=== PATIENT | female | born 1970 | race Caucasian/White ===

== ENCOUNTER 2018-08-04 12:13 | Inpatient (IN) | payer OTHER ==
[~2018-08-04] VITALS: Ht 175.3 cm; Wt 69.1 kg
[2018-08-04] MEDS ORDERED: SODIUM CHLORIDE 0.9% 1,000 ML IV ONE (12:43)
--- NOTE | 2018-08-04 12:43 | NUR ---
PT IN GOWN. NO COMPLAINTS OF PAIN OR NAUSEA AT THIS TIME. ABD DISTENDED BUT SOFT. ERP IN TO SEE PT. CALL LIGHT WITHIN REACH.
[2018-08-04] MEDS ORDERED: ONDANSETRON 2MG/ML, 2ML IVPush ONE (13:00)
[2018-08-04] MEDS ORDERED: SODIUM CHLORIDE 0.9% 1,000ML IVBOLUS ONE (13:00)
[2018-08-04] MEDS ORDERED: SODIUM CHLORIDE FLUSH 10ML SYR IVF ONE (13:00)
[2018-08-04] MEDS ORDERED: FENTANYL PF 250 MCG/5ML ONE ×2 (13:04→13:59)
[2018-08-04] MEDS ORDERED: PROPOFOL 10 MG/ML, 20ML ONE (13:06)
[2018-08-04] MEDS ORDERED: ROCURONIUM 10MG/ML,5ML ONE (13:06)
[2018-08-04] MEDS ORDERED: SUCCINYLCHOLINE 20 MG/ML, 10ML ONE (13:06)
--- NOTE | 2018-08-04 13:10 | NUR ---
REPORT TO OR. PT UNDRESSED, PREP FOR SURGERY. IV TO BE PLACED PRIOR TO LEAVING ED.
[2018-08-04] MEDS ORDERED: SODIUM CHLORIDE FLUSH 10ML SYR IVF PRN (13:30)
[2018-08-04 13:32] LABS: BASOPHILS # (AUTO) 0.04 x10^3/uL (0-0.1); BASOPHILS % (AUTO) 0 % (0-1); EOSINOPHILS % (AUTO) 0 % (1-7); LYMPHOCYTES # (AUTO) 0.49 x10^3/uL (1-3.4); LYMPHOCYTES % (AUTO) 5 % (22-44); MD NO; MEAN CORPUSCULAR HEMOGLOBIN 32.2 pg (27.0-34.8); MEAN CORPUSCULAR HGB CONC 34.1 g/dL (32.4-35.8); MEAN CORPUSCULAR VOLUME 94.5 fL (80-100); MEAN PLATELET VOLUME 7.8 fL (7.4-10.4); MONOCYTES # (AUTO) 0.45 x10^3/uL (0.2-0.8); MONOCYTES % (AUTO) 4 % (2-9); NEUTROPHILS # (AUTO) 9.93 x10^3/uL (1.8-6.8); NEUTROPHILS % (AUTO) 91 % (42-75); PLATELET COUNT 249 x10^3/uL (130-400); RED BLOOD COUNT 5.21 x10^6/uL (3.82-5.3); RED CELL DISTRIBUTION WIDTH 13.5 % (9.6-15.2)
[2018-08-04 13:44] LABS: ALANINE AMINOTRANSFERASE 23 U/L (12-78); ALBUMIN 4.6 g/dL (3.4-5.0); ANION GAP 9 mmol/L (5-15); CALCIUM 9.9 mg/dL (8.5-10.1); CHLORIDE 103 mmol/L (98-107)
[2018-08-04 13:46] LABS: ALKALINE PHOSPHATASE 70 U/L (45-117); CREATININE 1.04 mg/dL (0.55-1.02); TOTAL PROTEIN 8.7 g/dL (6.4-8.2)
[2018-08-04] MEDS ORDERED: MIDAZOLAM 1 MG/ML, 2ML ONE (13:59)
[2018-08-04] MEDS ORDERED: DEXAMETHASONE 4 MG/ML, 1ML ONE (14:30)
[2018-08-04] MEDS ORDERED: KETOROLAC 30 MG/1 ML ONE (14:34)
[2018-08-04] MEDS ORDERED: ONDANSETRON 2MG/ML, 2ML ONE (15:00)
[2018-08-04] MEDS ORDERED: ONDANSETRON 2MG/ML, 2ML IV PRN (15:00)
[2018-08-04] MEDS ORDERED: MEPERIDINE/PF 25MG/0.5ML IVPush PRN (15:00)
[2018-08-04] MEDS ORDERED: LABETALOL 5MG/ML, 20ML IV PRN (15:00)
[2018-08-04] MEDS ORDERED: PROMETHAZINE 25 MG/ML, 1ML IV PRN (15:00)
[2018-08-04] MEDS ORDERED: FENTANYL PF 100 MCG/2ML IV PRN (15:00)
[2018-08-04] MEDS ORDERED: HYDROmorphone 2 MG/ML, 1ML IVPush PRN (15:00)
[2018-08-04] MEDS ORDERED: OXYcodone 5 MG/5 ML ORAL.SOL UDC PO PRN (15:00)
[2018-08-04] MEDS ORDERED: hydrALAzine 20 MG/ML, 1ML IV PRN (15:00)
[2018-08-04] MEDS ORDERED: ACETAMINOPHEN 325 MG TABLET PO PRN (15:00)
[2018-08-04] MEDS ORDERED: SUGAMMADEX 200 MG/2 ML IVPush ONE (15:03)
[2018-08-04] MEDS ORDERED: OXYcodone 5 MG/5 ML ORAL.SOL UDC ONE (15:25)
[2018-08-04] MEDS ORDERED: ACETAMINOPHEN 650 MG/20.3 ML UDC ONE ×2 (15:25→15:26)
[2018-08-04] MEDS ORDERED: HYDROmorphone 1 MG/ML, 1ML VIAL ONE (15:26)
[2018-08-04] MEDS ORDERED: ACETAMINOPHEN 100 ML IVPB PRN ×2 (15:30→21:30)
[2018-08-04] MEDS ORDERED: CALCIUM CARBONATE 500 MG TAB.CHEW PO PRN (15:30)
[2018-08-04] MEDS: IBUPROFEN 800 MG TABLET PO SCH ×2 (16:00→20:07)
[2018-08-04] MEDS ORDERED: SCOPOLAMINE PATCH, 1.5MG PATCH.TD72 TD PRN (16:03)
[2018-08-04] MEDS ORDERED: DIPHENHYDRAMINE 50 MG/ML, 1ML IVPush PRN (16:30)
[2018-08-04] MEDS ORDERED: FENTANYL PF 100 MCG/2ML IVPush PRN (16:30)
[2018-08-04] MEDS ORDERED: OXYcodone IR 5MG TABLET PO PRN (16:30)
[2018-08-04] MEDS ORDERED: LACTATED RINGERS 1,000 ML IV SCH (16:30)
[2018-08-04] MEDS ORDERED: METOCLOPRAMIDE 5 MG/ML, 2ML ONE (16:36)
[2018-08-04] MEDS: CEFTRIAXONE PMX 2GM/50ML 50 ML IVPB SCH (17:43)
[2018-08-04] MEDS: SODIUM CHLORIDE FLUSH 10ML SYR IVF SCH (20:08)
[2018-08-04 20:10] VITALS: BP 121/65
[2018-08-04] MEDS: LORazepam 2 MG/ML, 1ML IVPush PRN (23:33)
[2018-08-04 23:59] LABS: MICROSCOPIC NOT IND
[2018-08-05 00:01] LABS: CULTURE INDICATED? NO
[2018-08-05 01:20] VITALS: BP 100/63
[2018-08-05 03:06] LABS: BASOPHILS % (AUTO) 0 % (0-1); EOSINOPHILS % (AUTO) 0 % (1-7); LYMPHOCYTES % (AUTO) 7 % (22-44); MD NO; MEAN CORPUSCULAR HEMOGLOBIN 32.3 pg (27.0-34.8); MEAN CORPUSCULAR HGB CONC 34.3 g/dL (32.4-35.8); MEAN CORPUSCULAR VOLUME 94.3 fL (80-100); MEAN PLATELET VOLUME 7.7 fL (7.4-10.4); MONOCYTES # (AUTO) 0.43 x10^3/uL (0.2-0.8); MONOCYTES % (AUTO) 6 % (2-9); NEUTROPHILS # (AUTO) 6.32 x10^3/uL (1.8-6.8); NEUTROPHILS % (AUTO) 87 % (42-75); PLATELET COUNT 190 x10^3/uL (130-400); RED BLOOD COUNT 4.18 x10^6/uL (3.82-5.3); RED CELL DISTRIBUTION WIDTH 13.5 % (9.6-15.2)
[2018-08-05 03:17] LABS: ANION GAP 5 mmol/L (5-15); CALCIUM 8.5 mg/dL (8.5-10.1); CHLORIDE 104 mmol/L (98-107); CREATININE 0.99 mg/dL (0.55-1.02)
[2018-08-05] MEDS: OXYcodone IR 5MG TABLET PO PRN ×3 (04:12→21:01)
[2018-08-05 07:21] VITALS: BP 110/67
[2018-08-05] MEDS: PSYLLIUM PACKET PO SCH (09:39)
[2018-08-05] MEDS: IBUPROFEN 800 MG TABLET PO SCH ×3 (09:39→20:05)
[2018-08-05] MEDS: SODIUM CHLORIDE FLUSH 10ML SYR IVF SCH ×2 (09:39→20:06)
[2018-08-05] MEDS: ENOXAPARIN 30 MG/0.3 ML SQ SCH ×2 (09:39→21:01)
[2018-08-05 13:11] VITALS: BP 121/82
[2018-08-05] MEDS: ONDANSETRON 2MG/ML, 2ML IVPush PRN (14:25)
[2018-08-05] MEDS: CEFTRIAXONE PMX 2GM/50ML 50 ML IVPB SCH (18:08)
[2018-08-05 20:14] VITALS: BP 133/85
[2018-08-06] MEDS: LORazepam 2 MG/ML, 1ML IVPush PRN (01:34)
[2018-08-06 02:30] VITALS: BP 110/76
[2018-08-06 03:24] LABS: BASOPHILS # (AUTO) 0.01 x10^3/uL (0-0.1); BASOPHILS % (AUTO) 0 % (0-1); EOSINOPHILS # (AUTO) 0.03 x10^3/uL (0-0.4); EOSINOPHILS % (AUTO) 1 % (1-7); LYMPHOCYTES # (AUTO) 0.84 x10^3/uL (1-3.4); LYMPHOCYTES % (AUTO) 16 % (22-44); MD NO; MEAN CORPUSCULAR HEMOGLOBIN 32.1 pg (27.0-34.8); MEAN CORPUSCULAR HGB CONC 33.7 g/dL (32.4-35.8); MEAN CORPUSCULAR VOLUME 95.2 fL (80-100); MEAN PLATELET VOLUME 7.9 fL (7.4-10.4); MONOCYTES # (AUTO) 0.54 x10^3/uL (0.2-0.8); MONOCYTES % (AUTO) 10 % (2-9); NEUTROPHILS # (AUTO) 3.94 x10^3/uL (1.8-6.8); NEUTROPHILS % (AUTO) 73 % (42-75); PLATELET COUNT 192 x10^3/uL (130-400); RED BLOOD COUNT 4.18 x10^6/uL (3.82-5.3); RED CELL DISTRIBUTION WIDTH 13.1 % (9.6-15.2)
[2018-08-06 03:32] LABS: ALBUMIN 2.8 g/dL (3.4-5.0); ANION GAP 6 mmol/L (5-15); CHLORIDE 103 mmol/L (98-107); CREATININE 0.79 mg/dL (0.55-1.02)
[2018-08-06] MEDS: ONDANSETRON 2MG/ML, 2ML IVPush PRN ×2 (06:28→20:37)
[2018-08-06 07:45] VITALS: BP 129/87
[2018-08-06] MEDS: PSYLLIUM PACKET PO SCH (09:27)
[2018-08-06] MEDS: IBUPROFEN 800 MG TABLET PO SCH ×3 (09:30→20:37)
[2018-08-06] MEDS: ENOXAPARIN 30 MG/0.3 ML SQ SCH ×2 (09:34→20:38)
[2018-08-06] MEDS: SODIUM CHLORIDE FLUSH 10ML SYR IVF SCH ×2 (09:35→20:38)
[2018-08-06 12:30] VITALS: BP 124/75
[2018-08-06] MEDS: CEFTRIAXONE PMX 2GM/50ML 50 ML IVPB SCH (18:03)
[2018-08-06 19:35] VITALS: BP 135/63
[2018-08-07] MEDS: LORazepam 2 MG/ML, 1ML IVPush PRN (00:22)
[2018-08-07 02:17] VITALS: BP 133/80
[2018-08-07] MEDS: OXYcodone IR 5MG TABLET PO PRN (02:27)
[2018-08-07 03:25] LABS: BASOPHILS # (AUTO) 0.01 x10^3/uL (0-0.1); BASOPHILS % (AUTO) 0 % (0-1); EOSINOPHILS # (AUTO) 0.03 x10^3/uL (0-0.4); EOSINOPHILS % (AUTO) 1 % (1-7); LYMPHOCYTES # (AUTO) 0.76 x10^3/uL (1-3.4); LYMPHOCYTES % (AUTO) 14 % (22-44); MD NO; MEAN CORPUSCULAR HEMOGLOBIN 32.5 pg (27.0-34.8); MEAN CORPUSCULAR VOLUME 95.6 fL (80-100); MEAN PLATELET VOLUME 7.8 fL (7.4-10.4); MONOCYTES % (AUTO) 9 % (2-9); NEUTROPHILS # (AUTO) 4.25 x10^3/uL (1.8-6.8); NEUTROPHILS % (AUTO) 77 % (42-75); PLATELET COUNT 191 x10^3/uL (130-400); RED BLOOD COUNT 3.76 x10^6/uL (3.82-5.3); RED CELL DISTRIBUTION WIDTH 13.4 % (9.6-15.2)
[2018-08-07 03:36] LABS: ALBUMIN 2.7 g/dL (3.4-5.0); ANION GAP 6 mmol/L (5-15); CALCIUM 7.9 mg/dL (8.5-10.1); CHLORIDE 101 mmol/L (98-107); CREATININE 0.65 mg/dL (0.55-1.02)
[2018-08-07 07:18] VITALS: BP 134/87
[2018-08-07] MEDS: PSYLLIUM PACKET PO SCH (08:55)
[2018-08-07] MEDS: IBUPROFEN 800 MG TABLET PO SCH ×3 (08:56→20:55)
[2018-08-07] MEDS: ENOXAPARIN 30 MG/0.3 ML SQ SCH ×2 (08:56→20:55)
[2018-08-07] MEDS: SODIUM CHLORIDE FLUSH 10ML SYR IVF SCH ×2 (08:57→20:56)
[2018-08-07] MEDS: FAMOTIDINE 20 MG/2 ML IVPush SCH ×2 (09:20→20:55)
[2018-08-07] MEDS: METOCLOPRAMIDE 5 MG/ML, 2ML IVPush SCH ×3 (09:20→20:55)
[2018-08-07 13:42] VITALS: BP 144/81
[2018-08-07] MEDS: CEFTRIAXONE PMX 2GM/50ML 50 ML IVPB SCH (17:26)
[2018-08-07 19:27] VITALS: BP 130/83
[2018-08-08] MEDS: LORazepam 2 MG/ML, 1ML IVPush PRN (00:07)
[2018-08-08 00:08] VITALS: BP 114/71
[2018-08-08] MEDS: METOCLOPRAMIDE 5 MG/ML, 2ML IVPush SCH ×2 (03:40→08:52)
[2018-08-08 06:59] VITALS: BP 122/80
[2018-08-08] MEDS: FAMOTIDINE 20 MG/2 ML IVPush SCH (08:51)
[2018-08-08] MEDS: IBUPROFEN 800 MG TABLET PO SCH (08:52)
[2018-08-08] MEDS: SODIUM CHLORIDE FLUSH 10ML SYR IVF SCH (09:00)
[2018-08-08] MEDS: PSYLLIUM PACKET PO SCH (09:00)
[2018-08-08] MEDS ORDERED: OXYC5TAB3 PO (09:58)
== END 2018-08-08 11:14 | disposition home or self-care (01) | DRG 329 ==
LOC: OR 13:23 → EDIP 13:30 → 4NOR 16:04 → DCLOUNGE 08-08 10:50
PROVIDERS: ADMIT Surgery; ATTEND Surgery
PROC: 0DTF0ZZ Resection of Right Large Intestine, Open Approach (ICD-10-PCS; principal; 2018-08-04 14:00)
DX: K56.2 Volvulus (principal); N17.0 Acute kidney failure with tubular necrosis
CPT/HCPCS: 36415; 99285; J3490; 80048; 80053; 81003; 82040; 83605; 83690; 85025; 88307; 93005; G0378; J0696; J1100; J1170; J1650; J1885; J2250; J2405; J2704; J3010; J0330; J1200; J2060; J2765; J7120